=== PATIENT | male | born 1975 | race Caucasian/White ===

== ENCOUNTER → 2018-06-29 | Outpatient (CLI) | payer BC ==
--- NOTE | 2018-06-29 08:44 | CT ---
EXAMINATION TYPE: CT brain w con DATE OF EXAM: 06/29/2018 COMPARISON: 09/30/2017 HISTORY: numbness and tingling in bilateral arms CT DLP: 1069.3 mGycm Automated exposure control for dose reduction was used. CONTRAST: CT scan of the head is performed with IV Contrast, patient injected with 100mL mL of Isovue 300. FINDINGS: There is no abnormal enhancing mass or midline shift identified. The ventricles and sulci are within normal limits in size. The globes are intact and the visualized sinuses are clear. IMPRESSION: Negative contrast enhanced head CT exam. If symptoms persist recommend follow-up MRI especially if th ere is a consideration. Demyelinating disease.
== END | disposition home or self-care (01) ==
LOC: RADCTMAIN 07:03
PROVIDERS: ATTEND Family Medicine
DX: G37.9 Demyelinating disease of central nervous system, unspecified (principal); R20.0 Anesthesia of skin; R20.2 Paresthesia of skin
CPT/HCPCS: 70460; Q9967

== ENCOUNTER 2019-01-06 20:39 | Emergency (ER) | payer BC ==
[2019-01-06 20:49] VITALS: RESP 18; TEMP 97.8
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
--- NOTE | 2019-01-06 22:22 | ED ---
Back Pain HPI - General Chief Complaint: Back Pain/Injury Stated Complaint: Fall/Back&Neck Pain Time Seen by Provider: 01/06/19 20:52 Source: patient Limitations: no limitations - History of Present Illness Initial Comments: 43-year-old male presenting today for chief complaint of right knee, right ankle pain. Patient states that he has dropfoot from a previous back injury. Patient states that he does not wear his right foot brace for the foot drop. Patient states that times it drags. Patient states his foot was dragging and got caught behind him. Causing to fall forward onto his right knee. Patient denies fall to the ground had neck injury per patient denies loss of conscious. Patient states he was able to ambulate and weight-bear. Patient states is tender in the right ankle as well as the right knee. Patient denies significant soft tissue swelling of the right knee. However he states there is soft tissue swelling in comparison with normal baseline of the right ankle. Patient was concerned of fracture present today for evaluation. Patient denies any increased numbness tingling or loss sensation in comparison with baseline. Patient states he does have baseline deficits of the right lower extremity due to the back injury. Patient denies any increased pain of the back. Loss of bowel bladder control or urinary retention. Patient denies taking any medications prior to arrival in the emergency department. Remaining review of systems negative. Upon arrival patient appears well no signs of acute distress. - Related Data Home Medications Medication Instructions Recorded Confirmed Cyanocobalamin (Vitamin B-12) 1,000 mcg PO DAILY 09/30/17 09/30/17 [Vitamin B-12] Phentermine HCl [Adipex-P] 37.5 mg PO QAM 09/30/17 09/30/17 Vitamin B Complex 1 cap PO DAILY 09/30/17 09/30/17 Previous Rx's Medication Instructions Recorded Meclizine [Antivert] 25 mg PO TID PRN #20 tab 09/30/17 Ibuprofen 800 mg PO Q8H PRN 7 Days #21 tablet 01/07/19 Allergies Allergy/AdvReac Type Severity Reaction Status Date / Time No Known Allergies Allergy Verified 01/06/19 20:49 Review of Systems ROS Statement: Those systems with pertinent positive or pertinent negative responses have been documented in the HPI. ROS Other: All systems not noted in ROS Statement are negative. Past Medical History Past Medical History: Hypertension Additional Past Medical History / Comment(s): chronic diarrhea History of Any Multi-Drug Resistant Organisms: None Reported Past Surgical History: Hernia Repair Past Psychological History: No Psychological Hx Reported Smoking Status: Never smoker Past Alcohol Use History: Occasional Past Drug Use History: None Reported General Exam - General Exam Comments Initial Comments: General: The patient is awake and alert, in no distress, and does not appear acutely ill. Eye: Pupils are equal, round and reactive to light, extra-ocular movements are intact. No nystagmus. There is normal conjunctiva bilaterally. No signs of icterus. Ears, nose, mouth and throat: There are moist mucous membranes and no oral lesions. Neck: The neck is supple, there is no tenderness or JVD. Cardiovascular: There is a regular rate and rhythm. No murmur, rub or gallop is appreciated. Respiratory: Lungs are clear to auscultation, respirations are non-labored, breath sounds are equal. No wheezes, stridor, rales, or rhonchi. Musculoskeletal: Upon inspection of the ankle bilaterally there is mild soft tissue swelling along the medial malleolus of the right ankle. There is tenderness to palpation at this location. No tenderness to palpation of the lateral malleolus. No tenderness to patient the forefoot. Capillary refill less than 2 seconds. Evidence of footdrop of the right side. Strength 5 of the left lower extremity. Strength 5 out of 5 at the knee and hip. Patient has no point tenderness of palpation to the right hip. Patient is tender to palpation of the anterior right knee. Extensor mechanism intact. . Sensation intact the proximal distal to injury site.. DP pulses equal bilaterally 2+. Neurological: A&O x 3. CN II-XII intact, There are no obvious motor or sensory deficits. Coordination appears grossly intact. Speech is normal. Skin: Skin is warm and dry and no rashes or lesions are noted. Psychiatric: Cooperative, appropriate mood & affect, normal judgment. Limitations: no limitations Course Vital Signs 01/06/19 01/06/19 20:45 23:13 Temperature 97.8 F 97.8 F Pulse Rate 69 78 Respiratory 18 18 Rate Blood Pressure 144/92 138/80 O2 Sat by Pulse 97 98 Oximetry Medical Decision Making - Medical Decision Making 33-year-old male presenting today for chief complaint of right knee and right ankle pain. Patient did admit to upon review of system mild right hip pain. Patient is able to weight-bear. Tenderness along the medial malleolus of the right ankle. As well as the right anterior knee. Upon review of imaging studies are appears to be a possible fracture of the medial malleolus. No other acute osseous injuries noted. Patient was placed in posterior splint, given prescription for crutches, given nonweightbearing instructions. As well as a knee immobilizer. There is no acute osseous injury of the right knee. Patient was instructed to follow-up with orthopedic surgery. In addition patient was instructed to use [facility] instructions as discussed. Return parameters were discussed at length with both patient and patient's was in the room. I discussed case briefly including surrounding events, PE findings and imaging study concerns with attending Dr. Boswell who is agreeable with plan of care. Pt discharged appearing well. Denies questions at this time. Disposition Clinical Impression: Right knee pain, Right knee sprain, Closed tibia fracture, Right ankle sprain Disposition: HOME SELF-CARE Condition: Good Instructions (If sedation given, give patient instructions): Ankle Fracture (ED), Knee Sprain (ED) Additional Instructions: Please use medication as discussed. Please follow-up with family doctor in the next 2 days, please follow up with orthopedic surgery in the next 1-2 days. Please use crutches for ambulation and knee immobilizer until follow-up with orthopedic surgery. Please return to emergency room if the symptoms increase or worsen or for any other concerns. Is patient prescribed a controlled substance at d/c from ED?: No Referrals: Juan Carlos Hong MD [Primary Care Provider] - 1-2 days Fuad Kelly DO [Medical Doctor] - 1-2 days Time of Disposition: 22:21
[2019-01-06 23:15] VITALS: BP 138/80; PULSE 78
== END 2019-01-06 23:23 | disposition home or self-care (01) ==
LOC: EC 20:39
DX: S82.201A Unspecified fracture of shaft of right tibia, initial encounter for closed fracture (principal); S83.91XA Sprain of unspecified site of right knee, initial encounter; S93.401A Sprain of unspecified ligament of right ankle, initial encounter; Z79.899 Other long term (current) drug therapy; W19.XXXA Unspecified fall, initial encounter; Y92.219 Unspecified school as the place of occurrence of the external cause
CPT/HCPCS: 73502; 73562; 73610; 99283; 29515; L1830

== ENCOUNTER 2019-09-12 09:02 | Emergency (ER) | payer OTHER, BC ==
[2019-09-12 09:15] VITALS: TEMP 98
[2019-09-12] MEDS ORDERED: ACETAMINOPHEN TAB 500 MG TAB PO STA (09:34)
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
[2019-09-12] MEDS ORDERED: ONDANSETRON ODT 4 MG TAB PO STA (10:08)
[2019-09-12] MEDS ORDERED: MORPHINE SULFATE 4 MG/ML SYRINGE IM STA (10:19)
[2019-09-12] MEDS ORDERED: KETOROLAC 30 MG/ML 1 ML VIAL IM STA (11:58)
[2019-09-12] MEDS ORDERED: ACET/COD 300 MG/30 MG STARTER PACK 6 TAB BTL PO STA (13:48)
[2019-09-12 13:52] VITALS: BP 144/94; PULSE 87; RESP 16
== END 2019-09-12 13:52 | disposition home or self-care (01) ==
LOC: EC 09:02
DX: S06.0X0A Concussion without loss of consciousness, initial encounter (principal); M25.562 Pain in left knee; M40.202 Unspecified kyphosis, cervical region; I10 Essential (primary) hypertension; V47.5XXA Car driver injured in collision with fixed or stationary object in traffic accident, initial encounter; Y93.89 Activity, other specified; Y92.410 Unspecified street and highway as the place of occurrence of the external cause
CPT/HCPCS: 73564; 71046; 72125; 70450; 96372 ×2; 99284; J2270; J1885

== ENCOUNTER → 2021-08-15 | Outpatient (CLI) | payer BC ==
[2021-08-15 20:54] LABS: Gliadin AB IgA, Deaminated NEGATIVE (NEGATIVE); Gliadin AB IgA, Unit 1.4 U/mL; Gliadin AB IgG, Deaminated NEGATIVE (NEGATIVE)
== END | disposition home or self-care (01) ==
LOC: LABWHC1 07:51
PROVIDERS: ATTEND Allergy & Immunology
DX: K52.9 Noninfective gastroenteritis and colitis, unspecified (principal)
CPT/HCPCS: 36415; 82784; 83516

== ENCOUNTER 2023-01-04 13:20 | Emergency (ER) | payer BC ==
[2023-01-04 13:25] VITALS: TEMP 97.9
[2023-01-04 14:12] VITALS: RESP 18
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
[2023-01-04 15:14] VITALS: BP 143/87; PULSE 64
== END 2023-01-04 15:14 | disposition home or self-care (01) ==
LOC: EC 13:20
DX: S00.83XA Contusion of other part of head, initial encounter (principal); S80.11XA Contusion of right lower leg, initial encounter; I10 Essential (primary) hypertension; Z79.899 Other long term (current) drug therapy; V18.0XXA Pedal cycle driver injured in noncollision transport accident in nontraffic accident, initial encounter; Y93.55 Activity, bike riding
CPT/HCPCS: 70450; 70486; 99284